=== PATIENT | female | born 2000 | race Hispanic/Latino ===

== ENCOUNTER 2020-06-16 21:31 | Inpatient (IN) | payer SELFPAY ==
[~2020-06-16] VITALS: Ht 144.8 cm; Wt 78.9 kg
[2020-06-16] MEDS ORDERED: ACETAMINOPHEN 325 MG TAB ONE (22:15)
[2020-06-16] MEDS ORDERED: CEFTRIAXONE 1G VIAL ONE (22:15)
[2020-06-16] MEDS ORDERED: IBUPROFEN 600 MG TABLET ONE (22:16)
[2020-06-16 22:17] LABS: BASOPHILS % (AUTO) 0.2 % (0.0-5.0); EOSINOPHILS % (AUTO) 0.6 % (0.0-8.0); LYMPHOCYTES % (AUTO) 6.8 % (21.0-51.0); MEAN CORPUSCULAR HGB CONC 32.8 g/dL (32.0-36.0); MEAN CORPUSCULAR VOLUME 88.5 fL (80-100); MONOCYTES % (AUTO) 10.4 % (3.0-13.0); NEUTROPHILS % (AUTO) 81.5 % (40.0-77.0); PLATELET COUNT (AUTO) 222 K/uL (130-400); RED BLOOD CELL COUNT(AUTO) 4.07 MIL/uL (4.00-5.50); RED CELL DISTRIBUTION WIDTH 13.1 % (11.0-15.5); WHITE BLOOD COUNT (AUTO) 13.3 K/uL (4.8-10.8)
[2020-06-16 22:26] LABS: APPEARANCE,URINE Cloudy (CLEAR); BILIRUBIN,URINE Small (NEGATIVE); COLOR,URINE Dark Yellow (YELLOW); GLUCOSE, URINE (UA) Negative (NEGATIVE); KETONES,URINE Negative (NEGATIVE); LEUKOCYTE ESTERASE ,URINE Large (NEGATIVE); NITRATE,URINE Negative (NEGATIVE); OCCULT BLOOD,URINE Trace (NEGATIVE); PROTEIN,URINE POS 1+ mg/dL (NEGATIVE)
[2020-06-16 22:29] LABS: POTASSIUM 3.6 mmol/L (3.5-5.1)
[2020-06-16 22:30] LABS: HCG,QUAL RESULT NEGATIVE (NEGATIVE)
[2020-06-16 22:33] LABS: ALBUMIN 3.3 g/dL (3.5-5.0); TOTAL PROTEIN, SERUM 7.4 g/dL (6.0-8.3)
[2020-06-16 22:53] LABS: RBC,URINE 0-1 /HPF (0-1)
[2020-06-16 22:54] LABS: BACTERIA,URINE Moderate /HPF (None Seen); WBC,URINE 26-50 /HPF (0-1); YEAST,URINE BUDDING Many /HPF (None Seen)
[2020-06-16] MEDS ORDERED: MAG/ALUM/SIMETH 30 ML UDCUP PO PRN (23:15)
[2020-06-16] MEDS ORDERED: ACETAMINOPHEN 325 MG TAB PO PRN ×2 (23:15)
[2020-06-16] MEDS: LACTATED RINGERS 1000ML 1,000 ML IV SCH (23:15)
[2020-06-16] MEDS ORDERED: IBUPROFEN 800 MG TAB PO PRN (23:15)
[2020-06-16] MEDS: ZOSYN 3.375GM+NS 50ML 50 ML IV SCH (23:15)
[2020-06-16] MEDS ORDERED: MORPHINE 2 MG SYG IV PRN (23:15)
[2020-06-16] MEDS ORDERED: DiphenhydrAMINE HCL 50 MG/ML VIAL IV PRN (23:15)
[2020-06-16] MEDS ORDERED: DIPHENHYDRAMINE HCL 25 MG CAPSULE PO PRN (23:15)
[2020-06-16] MEDS ORDERED: LACTULOSE 20 GM/30 ML UDCUP PO PRN (23:15)
[2020-06-16] MEDS ORDERED: GUAIFENESIN-DM 200/20 MG 10 ML PO PRN (23:15)
[2020-06-16] MEDS ORDERED: NITROGLYCERIN 0.4 MG SL TAB SL PRN (23:15)
[2020-06-16] MEDS ORDERED: ONDANSETRON 4MG INJ IV PRN (23:15)
[2020-06-16 23:21] LABS: INR 1.09 (0.85-1.15); PROTHROMBIN TIME 11.6 SEC (9.6-11.6)
[2020-06-16 23:22] LABS: PARTIAL THROMBOPLASTIN TIME 24.6 SEC (26.3-35.5)
[2020-06-16] MEDS ORDERED: ONDANSETRON 4MG INJ ONE (23:22)
[2020-06-16] MEDS ORDERED: MORPHINE 4 MG SYG ONE (23:23)
[2020-06-16] MEDS ORDERED: ZOSYN 3.375GM+NS 50ML 50 ML IV ONE (23:34)
[2020-06-17] VITALS (7 sets, daily range): BP systolic 94–172; BP diastolic 42–89
[2020-06-17] MEDS: ZOSYN 3.375GM+NS 50ML 50 ML IV SCH ×3 (05:33→22:39)
[2020-06-17] MEDS: LACTATED RINGERS 1000ML 1,000 ML IV SCH (15:43)
[2020-06-18 03:19] VITALS: BP 137/66
[2020-06-18 03:56] LABS: HEMATOCRIT 33.1 % (36-48); MEAN CORPUSCULAR HEMOGLOBIN 29.4 pg (27.0-33.0); MEAN CORPUSCULAR HGB CONC 33.5 g/dL (32.0-36.0); MEAN CORPUSCULAR VOLUME 87.8 fL (80-100); PLATELET COUNT (AUTO) 195 K/uL (130-400); RED BLOOD CELL COUNT(AUTO) 3.77 MIL/uL (4.00-5.50); RED CELL DISTRIBUTION WIDTH 12.9 % (11.0-15.5)
[2020-06-18 04:06] LABS: ALBUMIN 2.7 g/dL (3.5-5.0); BILIRUBIN,TOTAL 0.8 mg/dL (0.2-1.0); CREATININE 0.8 mg/dL (0.5-1.5); POTASSIUM 3.4 mmol/L (3.5-5.1); TOTAL PROTEIN, SERUM 6.5 g/dL (6.0-8.3)
[2020-06-18 04:38] LABS: BAND NEUTROPHILS % (MANUAL) 2 % (0-2); LYMPHOCYTES % (MANUAL) 5 % (22-44); MAN.DIFF COMMENT-IMPRESSION MANUAL DIFFERENTIAL; MONOCYTES % (MANUAL) 5 % (2-9); SEGMENTED NEUTROPHILS % 88 % (40-70)
[2020-06-18 04:39] LABS: PLATELET MORPHOLOGY COMMENT ADEQUATE
[2020-06-18] MEDS: ZOSYN 3.375GM+NS 50ML 50 ML IV SCH ×3 (06:40→23:20)
[2020-06-18 08:26] VITALS: BP 130/63
[2020-06-18 09:14] LABS: HEPATITIS A ANTIBODY IGM Negative (Negative); HEPATITIS B CORE IGM Negative (Negative); HEPATITIS Bs ANTIGEN SCREEN P Negative (Negative)
[2020-06-18 11:31] VITALS: BP 97/48
[2020-06-18 15:56] VITALS: BP 99/50
[2020-06-18] MEDS ORDERED: LIDOCAINE HCL 1% MDV 50ML VIAL ONE (16:53)
[2020-06-18] MEDS ORDERED: IODIXANOL 320 MG/ML 100 ML VIAL ONE (16:53)
[2020-06-18 19:37] VITALS: BP 99/54
[2020-06-18 23:17] VITALS: BP 98/60
[2020-06-19 03:39] VITALS: BP 120/60
[2020-06-19 06:21] LABS: BASOPHILS % (AUTO) 0.7 % (0.0-5.0); EOSINOPHILS % (AUTO) 1.5 % (0.0-8.0); HEMATOCRIT 32.7 % (36-48); LYMPHOCYTES % (AUTO) 26.8 % (21.0-51.0); MEAN CORPUSCULAR VOLUME 87.7 fL (80-100); MONOCYTES % (AUTO) 15.7 % (3.0-13.0); NEUTROPHILS % (AUTO) 54.4 % (40.0-77.0); PLATELET COUNT (AUTO) 246 K/uL (130-400); RED BLOOD CELL COUNT(AUTO) 3.73 MIL/uL (4.00-5.50); RED CELL DISTRIBUTION WIDTH 12.6 % (11.0-15.5); WHITE BLOOD COUNT (AUTO) 6.7 K/uL (4.8-10.8)
[2020-06-19 06:37] LABS: ALBUMIN 2.6 g/dL (3.5-5.0); BILIRUBIN,TOTAL 0.5 mg/dL (0.2-1.0); CREATININE 0.8 mg/dL (0.5-1.5); POTASSIUM 3.3 mmol/L (3.5-5.1); TOTAL PROTEIN, SERUM 6.6 g/dL (6.0-8.3)
[2020-06-19 07:22] VITALS: BP 116/71
[2020-06-19] MEDS: ZOSYN 3.375GM+NS 50ML 50 ML IV SCH (08:03)
[2020-06-19 10:55] VITALS: BP 115/69
[2020-06-19 15:51] VITALS: BP 129/74
[2020-06-19] MEDS ORDERED: IBUP-2077 PO (15:52)
[2020-06-19] MEDS ORDERED: NITR100C4 PO (15:53)
== END 2020-06-19 17:36 | disposition home or self-care (01) | DRG 872 ==
LOC: EDH 21:31 → EDHIP 21:32 → 3BH 06-17 00:35
PROVIDERS: ADMIT Family Medicine; ATTEND Family Medicine
DX: A41.9 Sepsis, unspecified organism (principal); N13.6 Pyonephrosis; E66.9 Obesity, unspecified; Z68.38 Body mass index [BMI] 38.0-38.9, adult
CPT/HCPCS: 36415; 71045; 74021; 74176; 74178; 76775; 80053; 80074; 81001; 81025; 82977; 83605; 83690; 84145; 85025; 85610; 85730; 86900; 86901; 87040; 87088; 93005; C1729; C1769; C1894; G0378; J0696; J2270; J2405; J2543; J3490; Q9967

== ENCOUNTER 2021-10-11 01:05 | Emergency (ER) | payer OTHER ==
[~2021-10-11] VITALS: Ht 149.9 cm; Wt 83.9 kg
[~2021-10-11 01:05] MED LIST: IBUP-2077 PO; NITR100C4 PO
[2021-10-11 01:38] LABS: BASOPHILS % (AUTO) 0.4 % (0.0-5.0); EOSINOPHILS % (AUTO) 0.9 % (0.0-8.0); HEMATOCRIT 41.5 % (36-48); LYMPHOCYTES % (AUTO) 18.3 % (21.0-51.0); MEAN CORPUSCULAR VOLUME 87.7 fL (79-99); MONOCYTES % (AUTO) 5.2 % (3.0-13.0); NEUTROPHILS % (AUTO) 74.8 % (40.0-77.0); PLATELET COUNT (AUTO) 292 K/uL (130-400); RED BLOOD CELL COUNT(AUTO) 4.73 MIL/uL (4.00-5.50); RED CELL DISTRIBUTION WIDTH 12.6 % (11.0-15.5); WHITE BLOOD COUNT (AUTO) 11.4 K/uL (4.8-10.8)
[2021-10-11 01:43] LABS: BILIRUBIN,URINE Negative (NEGATIVE); COLOR,URINE Yellow (YELLOW); GLUCOSE, URINE (UA) Negative (NEGATIVE); HCG,QUAL RESULT NEGATIVE (NEGATIVE); KETONES,URINE Negative (NEGATIVE); LEUKOCYTE ESTERASE ,URINE Small (NEGATIVE); NITRATE,URINE Negative (NEGATIVE); OCCULT BLOOD,URINE Moderate (NEGATIVE); PROTEIN,URINE Negative (NEGATIVE); UROBILINOGEN,URINE 0.2 mg/dL (0.2-1.0)
[2021-10-11 01:44] LABS: APPEARANCE,URINE SLIGHTLY CLOUDY (CLEAR)
[2021-10-11 01:51] LABS: AMORPHOUS SEDIMENT,UR Few /LPF (None Seen); BACTERIA,URINE Few /HPF (None Seen); MUCUS,URINE Few LPF (None Seen)
[2021-10-11 01:55] LABS: CREATININE 0.8 mg/dL (0.5-1.5); POTASSIUM 3.5 mmol/L (3.5-5.1)
[2021-10-11 01:59] LABS: ALBUMIN 4.3 g/dL (3.5-5.0); BILIRUBIN,TOTAL 0.3 mg/dL (0.2-1.0); TOTAL PROTEIN, SERUM 7.8 g/dL (6.0-8.3)
[2021-10-11] MEDS ORDERED: 0.9%NACL 1000ML 1,000 ML IV ONE (02:00)
[2021-10-11] MEDS ORDERED: ONDANSETRON 4MG INJ IVP ONE (02:00)
[2021-10-11] MEDS ORDERED: ONDA4TAB10 PO (03:16)
[2021-10-11 03:20] VITALS: BP 118/68
== END 2021-10-11 03:28 | disposition home or self-care (01) ==
LOC: EDH 01:05
DX: R11.10 Vomiting, unspecified (principal); E86.9 Volume depletion, unspecified; Z98.890 Other specified postprocedural states
CPT/HCPCS: 36415; 80053; 81001; 81025; 83690; 85025; 87088; 96361; 96374; 99283; J2405; J7030

== ENCOUNTER 2022-08-08 15:52 | Emergency (ER) | payer OTHER ==
[~2022-08-08] VITALS: Ht 152.4 cm; Wt 81.6 kg
[~2022-08-08 15:52] MED LIST changes: +ONDA4TAB10 PO
[2022-08-08 16:15] VITALS: BP 129/78
[2022-08-08 17:04] LABS: BASOPHILS % (AUTO) 0.4 % (0.0-5.0); EOSINOPHILS % (AUTO) 1.1 % (0.0-8.0); HEMATOCRIT 39.9 % (36-48); LYMPHOCYTES % (AUTO) 30.1 % (21.0-51.0); MEAN CORPUSCULAR HEMOGLOBIN 29.8 pg (27.0-33.0); MEAN CORPUSCULAR HGB CONC 34.1 g/dL (32.0-36.0); MEAN CORPUSCULAR VOLUME 87.5 fL (79-99); MONOCYTES % (AUTO) 6.3 % (3.0-13.0); NEUTROPHILS % (AUTO) 61.6 % (40.0-77.0); PLATELET COUNT (AUTO) 268 K/uL (130-400); RED BLOOD CELL COUNT(AUTO) 4.56 MIL/uL (4.00-5.50); RED CELL DISTRIBUTION WIDTH 12.5 % (11.0-15.5); WHITE BLOOD COUNT (AUTO) 8.1 K/uL (4.8-10.8)
[2022-08-08 17:14] LABS: CREATININE 1.2 mg/dL (0.5-1.5); POTASSIUM 3.5 mmol/L (3.5-5.1)
[2022-08-08 17:18] LABS: ALBUMIN 3.8 g/dL (3.5-5.0); TOTAL PROTEIN, SERUM 7.3 g/dL (6.0-8.3)
[2022-08-08 17:25] LABS: APPEARANCE,URINE CLEAR (CLEAR); BILIRUBIN,URINE NEGATIVE (NEGATIVE); COLOR,URINE LIGHT-YELLOW (YELLOW); GLUCOSE, URINE (UA) NEGATIVE (NEGATIVE); KETONES,URINE NEGATIVE (NEGATIVE); LEUKOCYTE ESTERASE ,URINE NEGATIVE Leu/uL (NEGATIVE); NITRATE,URINE NEGATIVE (NEGATIVE); PH,URINE 6.5 (5.0-8.0); PROTEIN,URINE NEGATIVE (NEGATIVE); UROBILINOGEN,URINE 0.2 mg/dL (0.2-1.0)
[2022-08-08 17:26] LABS: HCG,QUALITATIVE URINE NEGATIVE (NEGATIVE)
[2022-08-08 17:31] LABS: MUCUS,URINE RARE LPF (None Seen); RBC,URINE 0-1 /HPF (0-1); SQUAMOUS EPITHELIAL CELL,UR RARE /HPF (0-2); WBC,URINE 0-1 /HPF (0-1)
[2022-08-08] MEDS ORDERED: TAMS-1 PO (17:55)
[2022-08-08] MEDS ORDERED: IBUP-2070 PO (17:55)
[2022-08-08] MEDS ORDERED: KETOROLAC 30MG VIAL (30MG/ML) IM ONE (18:00)
== END 2022-08-08 18:19 | disposition home or self-care (01) ==
LOC: EDH 15:52
DX: N23 Unspecified renal colic (principal); Z79.899 Other long term (current) drug therapy; Z98.890 Other specified postprocedural states
CPT/HCPCS: 99283; 80053; 83690; 85025; 81001; 81025; 36415; 96372; J1885

== ENCOUNTER 2022-11-05 09:51 | Emergency (ER) | payer OTHER ==
[~2022-11-05] VITALS: Ht 149.9 cm; Wt 84.4 kg
[~2022-11-05 09:51] MED LIST changes: +IBUP-2070 PO; +TAMS-1 PO
[2022-11-05] MEDS ORDERED: ONDANSETRON ODT 4MG TAB ONE (10:01)
[2022-11-05 10:16] LABS: APPEARANCE,URINE CLEAR (CLEAR); BILIRUBIN,URINE NEGATIVE (NEGATIVE); GLUCOSE, URINE (UA) NEGATIVE (NEGATIVE); KETONES,URINE NEGATIVE (NEGATIVE); LEUKOCYTE ESTERASE ,URINE NEGATIVE Leu/uL (NEGATIVE); NITRATE,URINE NEGATIVE (NEGATIVE); OCCULT BLOOD,URINE NEGATIVE (NEGATIVE); PH,URINE 6.5 (5.0-8.0); PROTEIN,URINE NEGATIVE (NEGATIVE); UROBILINOGEN,URINE 0.2 mg/dL (0.2-1.0)
[2022-11-05 10:19] LABS: COLOR,URINE YELLOW (YELLOW)
[2022-11-05 10:21] LABS: HCG,QUALITATIVE URINE NEGATIVE (NEGATIVE)
[2022-11-05 10:26] VITALS: BP 134/79
== END 2022-11-05 10:57 | disposition left against medical advice (07) ==
LOC: EDH 09:51
DX: R51.9 Headache, unspecified (principal); Z20.822 Contact with and (suspected) exposure to COVID-19; Z53.21 Procedure and treatment not carried out due to patient leaving prior to being seen by health care provider
CPT/HCPCS: 99281; 87635; 87804 ×2; 81003; 81025; C9803

== ENCOUNTER 2023-11-24 22:00 | Emergency (ER) | payer BC, OTHER ==
[~2023-11-24] VITALS: Ht 149.9 cm; Wt 77.1 kg
[~2023-11-24 22:00] MED LIST changes: +ONDA-243 PO; -ONDA4TAB10 PO
[2023-11-24] MEDS: LACTATED RINGERS 1000ML 1,000 ML IV ONE (22:31)
[2023-11-24 22:36] LABS: BASOPHILS # (AUTO) 0.05 K/uL (0.00-0.20); BASOPHILS % (AUTO) 0.6 % (0.0-5.0); EOSINOPHILS # (AUTO) 0.07 K/uL (0.00-0.70); EOSINOPHILS % (AUTO) 0.8 % (0.0-8.0); HEMATOCRIT 38.5 % (36-48); IMMATURE GRANULOCYTE ABSOLUTE 0.04 K/uL (0-1); LYMPHOCYTES # (AUTO) 2.7 K/uL (1.0-4.8); LYMPHOCYTES % (AUTO) 30.9 % (21.0-51.0); MEAN CORPUSCULAR HEMOGLOBIN 30.1 pg (27.0-33.0); MEAN CORPUSCULAR HGB CONC 34.5 g/dL (32.0-36.0); MEAN CORPUSCULAR VOLUME 87.1 fL (79-99); MONOCYTES # (AUTO) 0.5 K/uL (0.1-1.0); MONOCYTES % (AUTO) 5.9 % (3.0-13.0); NEUTROPHILS # (AUTO) 5.3 K/uL (1.8-7.7); NEUTROPHILS % (AUTO) 61.3 % (40.0-77.0); PLATELET COUNT (AUTO) 323 K/uL (130-400); RED BLOOD CELL COUNT(AUTO) 4.42 MIL/uL (4.00-5.50); RED CELL DISTRIBUTION WIDTH 12.6 % (11.0-15.5); WHITE BLOOD COUNT (AUTO) 8.7 K/uL (4.8-10.8)
[2023-11-24 22:37] LABS: APPEARANCE,URINE CLEAR (CLEAR); BILIRUBIN,URINE NEGATIVE (NEGATIVE); GLUCOSE, URINE (UA) NEGATIVE (NEGATIVE); KETONES,URINE NEGATIVE (NEGATIVE); LEUKOCYTE ESTERASE ,URINE NEGATIVE Leu/uL (NEGATIVE); NITRATE,URINE NEGATIVE (NEGATIVE); OCCULT BLOOD,URINE LARGE (NEGATIVE); PH,URINE 6.5 (5.0-8.0); PROTEIN,URINE NEGATIVE (NEGATIVE); UROBILINOGEN,URINE 0.2 mg/dL (0.2-1.0)
[2023-11-24 22:39] LABS: HCG,QUALITATIVE URINE NEGATIVE (NEGATIVE)
[2023-11-24 22:40] LABS: ADD UA MICROSCOPIC YES; COLOR,URINE Light-Yellow (YELLOW)
[2023-11-24 22:42] LABS: BACTERIA,URINE RARE /HPF (None Seen); RBC,URINE 0-1 /HPF (0-1); WBC,URINE 0-1 /HPF (0-1)
[2023-11-24 22:42] LABS: CREATININE 0.8 mg/dL (0.5-1.0); POTASSIUM 3.3 mmol/L (3.5-5.1)
[2023-11-24] MEDS: KETOROLAC 15MG/ML VIAL (15MG/ML) IV ONE (22:50)
[2023-11-24] MEDS: POTASSIUM BICARB/CIT AC 25 MEQ TABLET.EFF PO ONE (22:50)
[2023-11-25 01:25] VITALS: BP 124/81; PULSE 74; RESP 16; O2SAT 99
== END 2023-11-25 01:48 | disposition home or self-care (01) ==
LOC: EDH 22:00
DX: N23 Unspecified renal colic (principal); Z79.899 Other long term (current) drug therapy; Z98.890 Other specified postprocedural states
CPT/HCPCS: 99284; 74176; 96374; 96361; 80048; 85025; 81001; 81025; 36415; J7120; J1885